=== PATIENT | male | born 1965 | race Caucasian/White ===

== ENCOUNTER 2017-08-22 11:11 | Emergency (ER) | payer SELFPAY ==
[~2017-08-22] VITALS: Ht 167.6 cm; Wt 70.0 kg
[2017-08-22 11:12] VITALS: BP 127/74; PULSE 84; RESP 15; TEMP 98.2; O2SAT 98
[2017-08-22] MEDS ORDERED: CLIN150 PO (11:50)
[2017-08-22] MEDS ORDERED: IBUP800T23 PO (11:50)
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
[2017-08-22] MEDS ORDERED: CLINDAMYCIN PHOS 600 MG/4 ML VIAL IM ONE (12:00)
== END 2017-08-22 12:38 | disposition home or self-care (01) ==
LOC: NEPK 11:11
DX: S01.511A Laceration without foreign body of lip, initial encounter (principal); K12.2 Cellulitis and abscess of mouth; Z72.0 Tobacco use; V18.4XXA Pedal cycle driver injured in noncollision transport accident in traffic accident, initial encounter
CPT/HCPCS: 96372

== ENCOUNTER 2017-09-29 22:01 | Emergency (ER) | payer SELFPAY ==
[~2017-09-29 22:01] MED LIST: CLIN150 PO; IBUP1TAB7 PO
[2017-09-29 22:02] VITALS: BP 122/65; PULSE 82; RESP 16; TEMP 98; O2SAT 99
[2017-09-29 22:43] LABS: AUTOMATED NEUTROPHIL # 4.8 TH/MM3 (1.8-7.7); BASOPHIL % 0.2 % (0.0-2.0); EOSINOPHIL # 0.1 TH/MM3 (0-0.4); EOSINOPHIL % 1.3 % (0.0-4.0); HEMATOCRIT 40.4 % (39.0-51.0); HEMO FLAGS DIFF FINAL; LYMPH % 24.8 % (9.0-44.0); LYMPHOCYTE # 1.8 TH/MM3 (1.0-4.8); MEAN CELL VOLUME 91.8 FL (80.0-100.0); MEAN CORPUSCULAR HEMOGLOBIN 31.2 PG (27.0-34.0); MONO % 7.9 % (0.0-8.0); NEUT % 65.8 % (16.0-70.0); PLATELET COUNT 260 TH/MM3 (150-450); RED CELL DISTRIBUTION WIDTH 13.3 % (11.6-17.2); WHITE BLOOD COUNT 7.2 TH/MM3 (4.0-11.0)
[2017-09-29 22:58] VITALS: BP 102/57; PULSE 54; RESP 18; O2SAT 98
[2017-09-29 22:58] LABS: BICARBONATE 23.9 MEQ/L (21.0-32.0); POTASSIUM 3.8 MEQ/L (3.5-5.1)
--- NOTE | 2017-09-29 22:59 | PD ---
HPI Chief Complaint: Headache Time Seen by Provider: 22:56 Travel History International Travel<30 days: No Contact w/Intl Traveler<30days: No Traveled to known affect area: No History of Present Illness HPI The patient is a 52 year old male who presents to the [facility] emergency department with a history of tunnel vision and headache that began prior to arrival. He reports that the symptoms are similar to when he was diagnosed with a brain tumor in the past. The patient reports that the headache is over the left side of his forehead. He was diagnosed with a brain tumor and 1990 or 1992. 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 He was on medicine for the tumor up until 1996 when he stopped it on his own as he was feeling improved. The tumor was reportedly attached to the optic nerve, therefore it was unable to be resected. He was last seen and treated for this in [place]. He moved to this area 4 and 1/2 years ago and has no primary care physician. On review of systems otherwise, the patient denies having any recent fevers, cough, congestion, neck pain, chest pain, shortness of breath, abdominal pain, vomiting, diarrhea, urinary symptoms, one-sided weakness, slurred speech, dizziness, difficulty with word finding ability, loss of vision, or facial droop PFSH Past Medical History Narrative Medical The patient's past medical history is significant for having a brain tumor. Medical other: Yes ("I'VE HAD A BRAIN TUMOR SINCE ") Immunizations Current: Yes Tetanus Vaccination: > 5 Years Past Surgical History Narrative Surgical The patient's past surgical history is significant for bilateral inguinal hernias repaired. Abdominal Surgery: Yes ("HERNIA REPAIR") Social History Alcohol Use: Yes (occasionally 1x per week.) Tobacco Use: Yes (1 PPD) Substance Use: No Allergies-Medications (Allergen,Severity, Reaction): Coded Allergies: bee venom protein (honey bee) (Verified Allergy, Severe, Hives, 09/29/17) Reported Meds & Prescriptions Reported Meds & Active Scripts Active Hydrocodone-Acetaminophen 5-325 mg Tab 1 Tab PO Q6H PRN None Review of Systems Except as stated in HPI: all other systems reviewed are Neg General / Constitutional: No: Fever Eyes: Positive: Other (tunnel vision), No: Visual changes HENT: Positive: Headaches (2 days ago) Cardiovascular: No: Chest Pain or Discomfort, Dyspnea on exertion Respiratory: No: Shortness of Breath Gastrointestinal: No: Nausea, Vomiting, Diarrhea, Abdominal Pain, Constipation , Changes in Bowel Habits, Indigestion, Loss of Appetite Genitourinary: No: Dysuria Musculoskeletal: No: Pain Skin: No Rash Neurologic: Positive: Headache, No: Weakness, Focal Abnormalities, Change in Mentation, Slurred Speech, Sensory Disturbance Psychiatric: No: Depression Endocrine: No: Polydipsia Hematologic/Lymphatic: No: Easy Bruising Physical Exam Narrative General: The patient is a well-developed well-nourished male in no acute distress. Head and Neck exam: Head is normocephalic atraumatic. Eyes: EOMI, pupils are equal round and reactive to light. No visual field deficits. Nose: Midline septum with pink mucous membranes Mouth: Dentition unremarkable. Moist mucus membranes. Posterior oropharynx is not erythematous. No tonsillar hypertrophy. Uvula midline. Airway patent. Neck: No palpable lymphadenopathy. No nuchal rigidity. No thyromegaly. Cardiovascular: Regular rate and rhythm without murmurs, gallops, or rubs. Lungs: Clear to auscultation bilaterally. No wheezes, rhonchi, or rales. Abdomen: Soft, without tenderness to palpation in all 4 quadrants of the abdomen. No guarding, rebound, or rigidity. Normal bowel sounds are audible. No tenderness on palpation of McBurney's point. Extremities: No clubbing, cyanosis, or edema. 2+ pulses in all 4 extremities. Back: No spinous process tenderness to palpation. No costovertebral angle tenderness to palpation. Neurologic Exam: Cranial nerves 2-12 were intact on exam. Strength is 5/5 in all 4 extremities. No sensory deficits noted. Skin Exam: No rash noted. Intact skin that is warm and dry. Data Data Last Documented VS Vital Signs Date Time Temp Pulse Resp B/P (MAP) Pulse Ox O2 Delivery O2 Flow Rate FiO2 09/30/17 01:31 09/30/17 01:09 61 18 96 Room Air 09/29/17 22:[address] Brain W/O Iv Contrast(Rout) (09/29/17 ) Complete Blood Count With Diff (09/29/17 22:11) Basic Metabolic Panel (Bmp) (09/29/17 22:11) Acetaminophen (Tylenol) (09/29/17 23:30) Ed Discharge Order (09/30/17 01:05) Mandatory Outpatient Referral (09/30/17 01:05) Labs Laboratory Tests Test 09/29/17 22:20 White Blood Count 7.2 TH/MM3 Red Blood Count 4.40 MIL/MM3 Hemoglobin 13.7 GM/DL Hematocrit 40.4 % Mean Corpuscular Volume 91.8 FL Mean Corpuscular Hemoglobin 31.2 PG Mean Corpuscular Hemoglobin Concent 34.0 % Red Cell Distribution Width 13.3 % Platelet Count 260 TH/MM3 Mean Platelet Volume 7.8 FL Neutrophils (%) (Auto) 65.8 % Lymphocytes (%) (Auto) 24.8 % Monocytes (%) (Auto) 7.9 % Eosinophils (%) (Auto) 1.3 % Basophils (%) (Auto) 0.2 % Neutrophils # (Auto) 4.8 TH/MM3 Lymphocytes # (Auto) 1.8 TH/MM3 Monocytes # (Auto) 0.6 TH/MM3 Eosinophils # (Auto) 0.1 TH/MM3 Basophils # (Auto) 0.0 TH/MM3 CBC Comment DIFF FINAL Differential Comment Blood Urea Nitrogen 10 MG/DL Creatinine 0.96 MG/DL Random Glucose 85 MG/DL Calcium Level 8.8 MG/DL Sodium Level 137 MEQ/L Potassium Level 3.8 MEQ/L Chloride Level 103 MEQ/L Carbon Dioxide Level 23.9 MEQ/L Anion Gap 10 MEQ/L Estimat Glomerular Filtration Rate 83 ML/MIN MDM Medical Decision Making Medical Screen Exam Complete: Yes Emergency Medical Condition: Yes Medical Record Reviewed: Yes Interpretation(s) Last Impressions Head CT 09/29/17 0000 Signed Impressions: Service Date/Time: Saturday, September 30, 2017 00:08 - CONCLUSION: 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 Is not a significant amount of surrounding edema or mass effect. No acute hemorrhage is seen. Brandon Samano MD Differential Diagnosis Growth of intracranial tumor, versus edema related to intracranial tumor, versus intracranial hemorrhage, versus tension headache, versus migraine headache, versus pituitary tumor Narrative Course During the course of the patients emergency department visit, the patients history, examination, and differential diagnosis were reviewed with the patient. The patient was placed on a monitoring coordinator with oximetry and frequent blood pressure monitoring. The patient had IV access obtained and blood work sent for analysis. The patient was initially provided acetaminophen 650 by mouth 1 for headache. The patients laboratory studies were reviewed and remarkable for a CBC that is within normal limits, basic metabolic profile is unremarkable. Radiology studies were reviewed and remarkable for CT scan of the brain shows a large known dermoid tumor in the left frontal region with extensive areas of fat within the sylvian fissure and subarachnoid space on the left. There is no significant surrounding edema or mass effect. No acute hemorrhage. As the patient does not have insurance the patient will be given a mandatory follow-up through patient assistance with neurosurgery regarding this tumor. The patient was originally diagnosed in the . The patient was last seen regarding this in [place]. The patient will be given a prescription for Lortab to take as needed for discomfort. I did speak to Dr. Hameed regarding this patient's case. He will see the patient in follow-up. The patient is resting comfortably and feels better, is alert and in no distress. The patients results and examination findings were discussed with the patient. The repeat examination is unremarkable and benign. The history, exam, diagnostic testing, and current condition do not suggest any significant pathology to warrant further testing, continued ED treatment, admission, or surgical evaluation at this point. The vital signs have been stable. The patient does not have uncontrollable pain, intractable vomiting, or other significant symptoms. The patient's condition is stable and appropriate for discharge. The patient will pursue further outpatient evaluation with a primary care physician or other designated or consulting physician as indicated in the discharge instructions. The patient expressed understanding and was agreeable with this plan. Physician Communication Physician Communication The patient's case including history, pertinent physical examination findings, and laboratory studies were discussed with . He agreed with the plan for the patient to be discharged and seen as an outpatient in follow-up. He did not recommend any steroids to prescribe for inflammation. Diagnosis Primary Impression: Dermoid tumor Additional Impression: Headache Qualified Codes: R51 - Headache Referrals: Neurosurgeon 1 week Patient Instructions: General Headache (ED), General Instructions Med/Other Pt SpecificInfo: Prescription(s) given Scripts Hydrocodone-Acetaminophen (Hydrocodone-Acetaminophen) 5-325 mg Tab 1 TAB PO Q6H Y for PAIN, #12 TAB 0 Refills Prov: Tiffanie Harris MD 09/30/17 Disposition: 01 DISCHARGE HOME Condition: Stable Tiffanie Harris MD Sep 29, 2017 22:59
[2017-09-29] MEDS ORDERED: ACETAMINOPHEN 325 MG TAB PO ONE (23:30)
--- NOTE | 2017-09-30 00:39 | RADRPT ---
EXAM DATE/TIME: 09/30/2017 00:08 [facility] COMPARISON: No previous studies available for comparison. INDICATIONS : Cephalgia. RADIATION DOSE: 56.35 CTDIvol (mGy) MEDICAL HISTORY : Dermoid tumor. SURGICAL HISTORY : None. ENCOUNTER: Initial ACUITY: 1 day PAIN SCALE: 9/10 LOCATION: cranial TECHNIQUE: Multiple contiguous axial images were obtained of the head. Using automated exposure control and adj ustment of the mA and/or kV according to patient size, radiation dose was kept as low as reasonably a chievable to obtain optimal diagnostic quality images. DICOM format image data is available electro nically for review and comparison. FINDINGS: CEREBRUM: In the left frontal lobe there is a large fatty area measuring 3.4 x 3.1 cm. There is some peripheral calcifications. There are numerous locules of fat along the sylvian fissure and within the subarachn oid space on the left. I don't see any surrounding edema or obvious mass effect present. The ventricles are normal for age. No evidence of midline shift, hemorrhage or acute infarction . No extra-axial fluid collections are seen. POSTERIOR FOSSA: The cerebellum and brainstem are intact. The 4th ventricle is midline. The cerebellopontine angle i s unremarkable. EXTRACRANIAL: The visualized portion of the orbits is intact. SKULL: The calvaria is intact. No evidence of skull fracture. 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 Is not a significant amount of surrounding edema or mass effect. No acute hemorrhage is seen. Barndon Samano MD on September 30, 2017 at 0:36 Board Certified Radiologist. This report was verified electronically.
[2017-09-30 01:09] VITALS: PULSE 61; RESP 18; O2SAT 96
[2017-09-30] MEDS ORDERED: HYDR-3516 PO (01:10)
== END 2017-09-30 01:31 | disposition home or self-care (01) ==
LOC: NEPC 22:01
DX: D33.7 Benign neoplasm of other specified parts of central nervous system (principal); F17.210 Nicotine dependence, cigarettes, uncomplicated
CPT/HCPCS: 70450; 80048; 85025; 99284

== ENCOUNTER 2017-10-06 18:29 | Emergency (ER) | payer SELFPAY ==
[~2017-10-06] VITALS: Ht 170.2 cm; Wt 65.0 kg
[~2017-10-06 18:29] MED LIST changes: -CLIN150 PO; +HYDR-3516 PO; -IBUP1TAB7 PO
[2017-10-06 18:32] VITALS: BP 137/59; PULSE 90; RESP 17; TEMP 98.8; O2SAT 99
--- NOTE | 2017-10-06 19:58 | PD ---
HPI Chief Complaint: Pain: Acute or Chronic Time Seen by Provider: 19:56 Travel History International Travel<30 days: No Contact w/Intl Traveler<30days: No Traveled to known affect area: No History of Present Illness HPI 52 YO M with PMH of dermoid brain tumor presents to the ED for evaluation of 8/ 10 throbbing headache. He endorses blurred vision and tunneled vision which he states is chronic. He denies dizziness, weakness, new onset of symptoms. He states that he is experiencing his same level of pain. He states that he is here for pain management. He was seen in the ED recently and provided mandatory outpatient referral to neurology. He has not yet followed up as planned. [facility] Past Medical History Immunizations Current: Yes Past Surgical History Abdominal Surgery: Yes ("HERNIA REPAIR") Social History Alcohol Use: Yes (occasionally 1x per week.) Tobacco Use: Yes (1 PPD) Substance Use: No Allergies-Medications (Allergen,Severity, Reaction): Coded Allergies: bee venom protein (honey bee) (Verified Allergy, Severe, Hives, 10/06/17) Reported Meds & Prescriptions Reported Meds & Active Scripts Active Hydrocodone-Acetaminophen 5-325 mg Tab 1 Tab PO Q4H PRN Hydrocodone-Acetaminophen 5-325 mg Tab 1 Tab PO Q6H PRN Review of Systems Except as stated in HPI: all other systems reviewed are Neg Physical Exam Narrative GENERAL: Well-nourished, well-developed patient. SKIN: Focused skin assessment warm/dry. HEAD: Normocephalic. EYES: No scleral icterus. No injection or drainage. PERRLA. EOMI. NECK: Supple, trachea midline. No JVD or lymphadenopathy. CARDIOVASCULAR: Regular rate and rhythm without murmurs, gallops, or rubs. RESPIRATORY: Breath sounds clear and equal bilaterally. No accessory muscle use. GASTROINTESTINAL: Abdomen soft, non-tender, nondistended. MUSCULOSKELETAL: No cyanosis, or edema. NEUROLOGICAL: Awake and alert. Cranial nerves II through XII intact. Motor and sensory grossly within normal limits. Five out of 5 muscle strength in all muscle groups. Normal speech. BACK: Nontender without obvious deformity. No CVA tenderness. Data Data Last Documented VS Vital Signs Date Time Temp Pulse Resp B/P (MAP) Pulse Ox O2 Delivery O2 Flow Rate FiO2 10/06/17 19:59 70 15 94/55 (68) 96 Room Air 10/06/17 18:32 98.8 Orders Orders Morphine Inj (Morphine Inj) (10/06/17 20:30) Ed Discharge Order (10/06/17 20:19) MDM Medical Decision Making Medical Screen Exam Complete: Yes Emergency Medical Condition: Yes Differential Diagnosis dermoid tumor versus chronic pain versus drug seeking behavior versus other Narrative Course 52 YO M with PMH of dermoid brain tumor presents to the ED for evaluation of 8/ 10 throbbing headache. He endorses blurred vision and tunneled vision which he states is chronic. He denies dizziness, weakness, new onset of symptoms. He states that he is experiencing his same level of pain. He states that he is here for pain management. He was seen in the ED recently and provided mandatory outpatient referral to neurology. He has not yet followed up as planned. Vitals reviewed. Physical exam reveals no focal neuro deficit. Patient was instructed 4 mg morphine IM and provided a prescription for #10 5mg Lortab. He is instructed to follow-up with neurology as planned. He was warned that it is unlikely he will be able to receive any further refills for pain medications in the emergency room. He indicated understanding of the instructions. He is agreeable to the care plan. He is stable and discharged home. Diagnosis Primary Impression: Chronic pain Qualified Codes: G89.3 - Neoplasm related pain (acute) (chronic) Additional Impression: Brain tumor Referrals: Terry Lake MD Additional Instructions: Rest, hydrate. Return to normal, gentle activities as tolerated. Pain medication refills are given at the discretion of the provider. You may not be able to obtain pain medication refills at your next ED visit. Follow-up with the neurologist as discussed the previous visit. Return to the ED for any urgent or emergent medical condition. Scripts Hydrocodone-Acetaminophen (Hydrocodone-Acetaminophen) 5-325 mg Tab 1 TAB PO Q4H Y for PAIN, #10 TAB 0 Refills Prov: Tiffanie Harris MD 10/06/17 Disposition: 01 DISCHARGE HOME Condition: Stable Ghislaine Suero Oct 06, 2017 19:58
[2017-10-06 19:59] VITALS: BP 94/55; PULSE 70; RESP 15; O2SAT 96
[2017-10-06] MEDS ORDERED: PERC5TAB12 PO (20:16)
[2017-10-06] MEDS ORDERED: MORPHINE SULFATE 4 MG/ML INJ IM ONE (20:30)
[2017-10-06] MEDS ORDERED: HYDR-3516 PO (20:33)
== END 2017-10-06 20:48 | disposition home or self-care (01) ==
LOC: NEPC 18:29
DX: G89.3 Neoplasm related pain (acute) (chronic) (principal); D33.2 Benign neoplasm of brain, unspecified; F17.200 Nicotine dependence, unspecified, uncomplicated
CPT/HCPCS: 96372; 99284; J2270

== ENCOUNTER → 2017-10-21 | Outpatient (CLI) | payer SELFPAY ==
[~2017-10-21] MED LIST changes: +GADODIAMIDE PF 287 MG/ML 5 ML VIAL (for RAD MRI) IV PUSH ONE; +OXYC-103 PO
--- NOTE | 2017-10-21 16:59 | RADRPT ---
EXAM DATE/TIME: 10/21/2017 15:43 [facility] COMPARISON: CT BRAIN W/O CONTRAST, September 30, 2017, 0:08. INDICATIONS : Mass. CONTRAST: 12 cc Omniscan (gadodiamide) IV MEDICAL HISTORY : None. SURGICAL HISTORY : Inguinal hernia repair. ENCOUNTER: Initial ACUITY: 4-6 days PAIN SCORE: 3/10 LOCATION: Head TECHNIQUE: An MRI brain stealth procedure was performed. The information will be used in the OR for localizatio n. FINDINGS: A large dumbbell shaped mass predominantly consisting of fat and non-enhancing soft tissue with perip heral calcification is identified in the left anterior and middle cranial fossas. Small fat containin g nodules are also present within the left sylvian fissure. The frontal component of the mass measures 3.6 x 2.5 x 3.6 cm in size. The temporal component measure s 2.6 x 3.5 x 2.6 cm in size. The mass appears extra-axial due to compression and displacement of the orbital frontal gyri. Focal mass effect is identified in both the left frontal and temporal lobes however there is no signi ficant shift of midline structures or evidence of significant surrounding edema. Right cerebral hemisphere, brain stem and cerebellum are unremarkable. CONCLUSION: Large bilobed fat containing, nonenhancing mass extending from the left middle cranial fossa into the anterior cranial fossa as described above characteristic of a large dermoid tumor. Small dermoid nodules are also present within the left sylvian fissure. Dereje Cantu MD on October 21, 2017 at 16:45 Board Certified Radiologist. This report was verified electronically.
== END ==
LOC: HRAD 15:03
PROVIDERS: ATTEND Neurological Surgery
DX: G93.9 Disorder of brain, unspecified (principal)
CPT/HCPCS: 70553; A9579